=== PATIENT | female | born 1950 | race Caucasian/White ===

== ENCOUNTER 2018-04-25 10:30 | Emergency (ER) | payer MEDICARE, BC ==
[2018-04-25 10:50] VITALS: BP 108/70
--- NOTE | 2018-04-25 11:17 | UC ---
Respiratory Complaint HPI - HPI Summary HPI Summary: 67-year-old female presents with 9 day history of URI symptoms. States started with a sore throat and then developed some nasal congestion 2 days later. On the fourth or fifth day she states she started with fever as high as 102.8 F, fatigue, body aches, and a productive cough. Last known fever was yesterday at approximately 100.9 F. Denies ear pain, dysphagia, chest pain, shortness of breath, abdominal pain, nausea, vomiting, or diarrhea. - History of Current Complaint Chief Complaint: UCRespiratory Stated Complaint: COUGH,CONGESTION Time Seen by Provider: 04/25/18 11:01 Hx Obtained From: Patient Pain Intensity: 2 - Allergies/Home Medications Allergies/Adverse Reactions: Allergies Allergy/AdvReac Type Severity Reaction Status Date / Time Penicillins Allergy Rash Verified 04/25/18 10:51 Home Medications: Home Medications Calcium Carbonate [Calcium] 500 mg PO 04/25/18 [History] Multivitamin [Multivitamins] 1 cap PO 04/25/18 [History] PMH/Surg Hx/FS Hx/Imm Hx Previously Healthy: Yes - Denies significant PMH - Surgical History Surgical History: Yes Surgery Procedure, Year, and Place: bilat cateract surgery, cosmetic surgery to neck - Family History Known Family History: Positive: Non-Contributory - Social History Occupation: Employed Full-time Lives: With Family Alcohol Use: Rare Substance Use Type: None Smoking Status (MU): Never Smoked Tobacco Review of Systems All Other Systems Reviewed And Are Negative: Yes Constitutional: Positive: Fever, Fatigue Skin: Negative: Rash Eyes: Negative: Drainage, Eye Redness ENT: Positive: Sore Throat, Nasal Discharge, Sinus Congestion, Sinus Pain/ Tenderness. Negative: Ear Ache Respiratory: Positive: Cough. Negative: Shortness Of Breath Cardiovascular: Negative: Palpitations, Chest Pain Gastrointestinal: Negative: Abdominal Pain, Vomiting, Diarrhea, Nausea Genitourinary: Positive: Negative Musculoskeletal: Positive: Negative Neurological: Positive: Negative Is Patient Immunocompromised?: No Physical Exam - Summary Physical Exam Summary: GENERAL APPEARANCE: Well developed, well nourished, alert and cooperative, and appears to be in no acute distress. EYES: Conjunctiva clear. No drainage. Vision is grossly intact. EARS: External auditory canals and tympanic membranes clear, hearing grossly intact. NOSE: No nasal discharge. THROAT: Mild pharyngeal erythema with cobblestoning. No tonsilar inflammation, swelling, exudate, or lesions. Uvula midline. Oral cavity normal. Teeth and gingiva in good general condition. NECK: Neck supple, non-tender without lymphadenopathy. CARDIAC: Normal S1 and S2. No S3, S4 or murmurs. Rhythm is regular. There is no peripheral edema, cyanosis or pallor. Extremities are warm and well perfused. Capillary refill is less than 2 seconds. Peripheral pulses intact. LUNGS: Clear to auscultation without rales, rhonchi, wheezing or diminished breath sounds. Harsh, loose, productive cough for woods sputum. ABDOMEN: Positive bowel sounds. Soft, nondistended, nontender. No guarding or rebound. No masses or hepatosplenomegally. MUSKULOSKELETAL: ROM intact to all extremities. No joint erythema or tenderness. Normal muscular development. Normal gait. SKIN: Skin normal color, texture and turgor with no lesions or eruptions. Triage Information Reviewed: Yes Vital Signs: Initial Vital Signs Temp 97.8 F 04/25/18 10:46 Pulse 94 04/25/18 10:46 Resp 18 04/25/18 10:46 BP 108/70 04/25/18 10:46 Pulse Ox 97 04/25/18 10:46 Vital Signs Reviewed: Yes Respiratory Course/Dx - Course Course Of Treatment: 67-year-old female presents with 9 day history of URI symptoms. States started with a sore throat and then developed some nasal congestion 2 days later. On the fourth or fifth day she states she started with fever as high as 102.8 F, fatigue, body aches, and a productive cough. Last known fever was yesterday at approximately 100.9 F. Denies ear pain, dysphagia, chest pain, shortness of breath, abdominal pain, nausea, vomiting, or diarrhea. Afebrile. Vital signs stable. Exam reveals an older adult female in no acute distress. Mild to moderate nasal congestion, mild pharyngeal erythema with cobblestoning, clear bilateral breath sounds, and a harsh, loose, occasionally productive cough woods colored sputum. Considering the duration of her symptoms and history of fever will treat her with a course of azithromycin as well as symptomatic treatment for acute bronchitis versus URI including saline rinses, fluticasone nasal spray proximal, and Tessalon Perles as needed for cough. She is to follow-up with her primary care provider in 5 days if symptoms do not improve. Anticipatory guidance and warning symptoms to review the patient. Verbalizes understanding and agrees with plan of care. - Differential Dx/Diagnosis Differential Diagnosis/HQI/PQRI: Bronchitis, Influenza, Lower Resp Infection Provider Diagnosis: Acute bronchitis Discharge - Sign-Out/Discharge Documenting (check all that apply): Patient Departure All imaging exams completed and their final reports reviewed: No Studies - Discharge Plan Condition: Stable Disposition: HOME Prescriptions: Azithromyxin MEHRDAD (NF) [Z-Mehrdad (Zithromax) 250 mg tabs #6] 2 tab PO .TODAY, THEN 1 DAILY #6 tab Benzonatate CAP* [Tessalon 100 MG CAP*] 100 mg PO TID PRN #21 cap PRN Reason: Cough Fluticasone NASAL SPRAY 50MCG* [Flonase NASAL SPRAY 50MCG*] 2 spray BOTH NARES DAILY #1 btl Patient Education Materials: Acute Bronchitis (ED) Referrals: Nahid Galvan MD [Primary Care Provider] - 5 Days (If no improvement.) Additional Instructions: Your history and exam are consistent with acute bronchitis. With the duration of your symptoms and fever I will treat you with an antibiotic for the infection. Take azithromycin 2 tabs today then 1 tab a day for then next 4 days. Be aware that the cough with bronchitis may persist for 2-3 weeks even if other symptoms have improved. Get plenty of rest. Drink plenty of fluids. Run a cool mist humidifer in your room at night. Take over the counter acetaminophen (Tylenol) or ibuprofen (Advil, Motrin) according to directions as needed for pain or fever. Take Tessalon Perles 1 cap every 8 hours as needed for cough. Use fluticasone nasal spray 2 sprays each nostril to help with the nasal congestion. Use a saline rinse kit such as Neti Pot or NeilMed at least twice a day to help thin secretions and promote drainage. Follow up with your primary care provider in 5 days if symptoms do not improve. Seek immediate medical attention in the emergency room if you have fever greater than 100.5 F despite taking acetaminophen or ibuprofen, have chest pain , difficulty breathing, or have any worsening of symptoms. - Billing Disposition and Condition Condition: STABLE Disposition: Home
== END 2018-04-25 11:25 | disposition home or self-care (01) ==
LOC: UCCORT 10:30
DX: J20.9 Acute bronchitis, unspecified (principal); R09.81 Nasal congestion
CPT/HCPCS: 99202; G0463